=== PATIENT | female | born 1995 | race Caucasian/White ===

== ENCOUNTER 2017-08-08 01:52 | Inpatient (IN) | payer SELFPAY, BC, MEDICAID ==
[2017-08-08 04:13] LABS: HEMATOCRIT 30.9 % (36.0-47.0); HEMOGLOBIN 9.9 g/dl (12.0-15.5); MEAN CORPUSCULAR HEMOGLOBIN 26.4 pg (27.0-33.0); MEAN CORPUSCULAR VOLUME 82.4 fl (80.0-96.0); PLATELET COUNT, AUTOMATED 271 10^3/uL (150-450); RED BLOOD COUNT 3.75 10^6/uL (4.00-5.40); RED CELL DISTRIBUTION WIDTH 15.8 % (11.5-14.5); WHITE BLOOD COUNT 8.6 10^3/uL (4.0-10.0)
[2017-08-08] MEDS: LR 1,000 ML IV ×3 (04:28→19:06)
[2017-08-08] MEDS: PENICILLIN G POTASSIUM IV 5 MU in D5W MINI-BAG PLUS 100 ML IV (04:28)
[2017-08-08 04:35] LABS: ALT/SGPT 16 U/L (12-78); AST/SGOT 15 U/L (7-37); BILIRUBIN,TOTAL 0.2 MG/DL (0.2-1.0); CREATININE FOR GFR 0.56 MG/DL (0.55-1.30); GLOMERULAR FILTRATION RATE > 60.0 (>60); LDH LACTATE DEHYDROGENASE 182 U/L (84-246); URIC ACID 4.8 MG/DL (2.6-6.0)
[2017-08-08 04:39] LABS: AMPHETAMINES URINE REFLEX NEGATIVE (NEGATIVE); BARBITURATES URINE REFLEX NEGATIVE (NEGATIVE); BENZODIAZEPINES URINE REFLEX NEGATIVE (NEGATIVE); CANNABINOIDS URINE REFLEX NEGATIVE (NEGATIVE); COCAINE METABOLITE URINE REFLE NEGATIVE (NEGATIVE); CREATININE,RANDOM URINE 86.5 MG/DL; METHADONE URINE REFLEX NEGATIVE (NEGATIVE); OPIATES URINE REFLEX NEGATIVE (NEGATIVE); PHENCYCLIDINE URINE REFLEX NEGATIVE (NEGATIVE); TOTAL PROTEIN,RANDOM URINE 33.8 MG/DL (0.0-12.0)
[2017-08-08 04:59] LABS: HEPATITIS B SURFACE ANTIGEN NEGATIVE (NEGATIVE)
[2017-08-08] MEDS: OXYTOCIN DRIP 30 UNITS in APPROPRIATE DILUENT 1 EA IV (06:18)
[2017-08-08 06:39] LABS: CHLAMYDIA DNA AMPLIFICATION NEGATIVE (NEGATIVE); GC DNA AMPLIFICATION NEGATIVE (NEGATIVE)
[2017-08-08] MEDS ORDERED: FENTANYL 2MCG/ML ROPIVACAINE 0.2% IN 0.9% NACL 200ML IVBAG As Ordered (07:23)
[2017-08-08] MEDS: PENICILLIN G POTASSIUM IV 2.5 MU in APPROPRIATE DILUENT 1 EA IV ×4 (08:58→20:29)
[2017-08-08] MEDS ORDERED: diphenhydrAMINE INJ 50MG/ML VIAL (J1200) IV (09:15)
[2017-08-08] MEDS ORDERED: LACTATED RINGER'S 1000 ML IV (09:15)
[2017-08-08] MEDS ORDERED: NALOXONE INJ 0.4 MG/1 ML VIAL (J2310) IV (09:15)
[2017-08-08] MEDS ORDERED: EPIDURAL COMMENT XX (09:15)
[2017-08-08] MEDS ORDERED: FENTANYL/ROPIVACAINE/NACL BAG 200 ML EPIDURAL (09:15)
[2017-08-08] MEDS ORDERED: REFRIGERATOR IV KEYS XX (09:15)
[2017-08-08] MEDS ORDERED: ePHEDrine SULFATE 25 MG/5 ML(5MG/ML) SYRINGE IV (09:15)
[2017-08-08] MEDS ORDERED: EPIDURAL/PCA KEYS XX (09:15)
[2017-08-08] MEDS: ONDANSETRON 4MG/2ML VIAL (J2405) IV (21:51)
[2017-08-09] MEDS: PENICILLIN G POTASSIUM IV 2.5 MU in APPROPRIATE DILUENT 1 EA IV (00:27)
[2017-08-09] MEDS ORDERED: BICITRA 30ML SOLN UDC As Ordered (02:16)
[2017-08-09] MEDS ORDERED: ceFAZolin 1GM INJ (J0690 PER 500MG) As Ordered (02:16)
[2017-08-09] MEDS: ceFAZolin SOD 1 GM in D5W MINI-BAG PLUS 50 ML IV (02:30)
[2017-08-09] MEDS: BICITRA 30ML SOLN UDC PO (02:30)
[2017-08-09] MEDS ORDERED: miSOPROStol 200 MCG TAB (S0191) As Ordered (03:31)
[2017-08-09] MEDS ORDERED: fentaNYL 100 MCG/2 ML INJECTION (J3010) IV (03:45)
[2017-08-09] MEDS ORDERED: ONDANSETRON 4MG/2ML VIAL (J2405) IV ×3 (03:45→04:15)
[2017-08-09] MEDS: LR 1,000 ML IV ×3 (03:45→04:55)
[2017-08-09] MEDS ORDERED: KETOROLAC 30 MG/ML VIAL (J1885) IV (03:45)
[2017-08-09] MEDS ORDERED: MEPERIDINE INJ 25 MG/ML VIAL (J2175) IV (03:45)
[2017-08-09] MEDS ORDERED: METOCLOPRAMIDE INJ 10MG/2ML VIAL (J2765) IV (03:59)
[2017-08-09] MEDS ORDERED: NALOXONE INJ 0.4 MG/1 ML VIAL (J2310) IV ×2 (03:59)
[2017-08-09] MEDS ORDERED: NALBUPHINE HCL 10 MG/ML AMP (J2300) IV (03:59)
[2017-08-09] MEDS ORDERED: MEPERIDINE INJ 25 MG/ML VIAL (J2175) As Ordered ×2 (04:12→04:28)
[2017-08-09] MEDS ORDERED: RHOGAM 300 MCG (1500 IU) INJ (J2790) IM (04:15)
[2017-08-09] MEDS ORDERED: PERCOCET 5MG/325MG TAB PO (04:15)
[2017-08-09] MEDS ORDERED: DOCUSATE SODIUM 100 MG CAP PO (04:15)
[2017-08-09] MEDS ORDERED: MEASLES,MUMPS,RUBELLA VACCINE INJ (MMR-II) (90707) SC (04:15)
[2017-08-09] MEDS: miSOPROStol 200 MCG TAB (S0191) PR (04:15)
[2017-08-09] MEDS ORDERED: fentaNYL 100 MCG/2 ML INJECTION (J3010) As Ordered ×2 (04:18→04:32)
[2017-08-09] MEDS ORDERED: ONDANSETRON 4MG/2ML VIAL (J2405) As Ordered (04:26)
[2017-08-09] MEDS ORDERED: KETOROLAC 30 MG/ML VIAL (J1885) As Ordered (04:36)
[2017-08-09] MEDS ORDERED: PERCOCET 5MG/325MG TAB As Ordered (04:48)
[2017-08-09] MEDS: PERCOCET 5MG/325MG TAB PO (04:58)
[2017-08-09 10:20] LABS: HEPATITIS C VIRUS ABY INDEX < 0.0 INDEX (<0.8)
[2017-08-09 10:21] LABS: HIV 1&2 SCREEN CENTAUR NEGATIVE (NEGATIVE)
[2017-08-09] MEDS: KETOROLAC 30 MG/ML VIAL (J1885) IV ×2 (10:38→17:35)
[2017-08-09] MEDS: PRENATAL VITAMINS CHEWABLE TABLET PO (11:03)
[2017-08-09 11:13] LABS: RUBELLA IgG QUALITATIVE IMMUNE (IMMUNE)
[2017-08-10] MEDS: IBUPROFEN 800 MG TAB PO ×3 (02:10→18:03)
[2017-08-10 06:26] LABS: HEMATOCRIT 25.4 % (36.0-47.0); MEAN CORPUSCULAR HEMOGLOBIN 26.1 pg (27.0-33.0); MEAN CORPUSCULAR HGB CONC 31.5 g/dl (32.0-36.5); MEAN CORPUSCULAR VOLUME 82.7 fl (80.0-96.0); PLATELET COUNT, AUTOMATED 262 10^3/uL (150-450); RED BLOOD COUNT 3.07 10^6/uL (4.00-5.40); RED CELL DISTRIBUTION WIDTH 16.1 % (11.5-14.5)
[2017-08-10] MEDS: PRENATAL VITAMINS CHEWABLE TABLET PO (08:46)
[2017-08-10] MEDS: FUROSEMIDE 20 MG TAB PO ×2 (08:47→18:03)
[2017-08-10 08:49] LABS: HEMATOCRIT 22.7 % (36.0-47.0); HEMOGLOBIN 7.3 g/dl (12.0-15.5); MEAN CORPUSCULAR HEMOGLOBIN 26.5 pg (27.0-33.0); MEAN CORPUSCULAR HGB CONC 32.2 g/dl (32.0-36.5); MEAN CORPUSCULAR VOLUME 82.5 fl (80.0-96.0); PLATELET COUNT, AUTOMATED 222 10^3/uL (150-450); RED BLOOD COUNT 2.75 10^6/uL (4.00-5.40); RED CELL DISTRIBUTION WIDTH 16.3 % (11.5-14.5); WHITE BLOOD COUNT 11.4 10^3/uL (4.0-10.0)
[2017-08-10 09:56] LABS: ALBUMIN 1.9 GM/DL (3.2-5.2); ALBUMIN/GLOBULIN RATIO 0.61 (1.00-1.93); ALKALINE PHOSPHATASE 160 U/L (45-117); ALT/SGPT 13 U/L (12-78); ANION GAP 5 MEQ/L (8-16); AST/SGOT 26 U/L (7-37); BILIRUBIN,TOTAL 0.3 MG/DL (0.2-1.0); BLOOD UREA NITROGEN 14 MG/DL (7-18); CALCIUM LEVEL 7.5 MG/DL (8.5-10.1); CARBON DIOXIDE LEVEL 28 MEQ/L (21-32); CHLORIDE LEVEL 107 MEQ/L (98-107); CREATININE FOR GFR 0.85 MG/DL (0.55-1.30); GLUCOSE, FASTING 74 MG/DL (70-100); LDH LACTATE DEHYDROGENASE 269 U/L (84-246); POTASSIUM SERUM 4.1 MEQ/L (3.5-5.1); SODIUM LEVEL 140 MEQ/L (136-145); URIC ACID 6.6 MG/DL (2.6-6.0)
[2017-08-10 10:03] LABS: GLOMERULAR FILTRATION RATE > 60.0 (>60)
[2017-08-10] MEDS ORDERED: IBUPROFEN 800 MG TAB PO (12:45)
[2017-08-11] MEDS: IBUPROFEN 800 MG TAB PO ×2 (01:51→08:26)
[2017-08-11] MEDS: FUROSEMIDE 20 MG TAB PO (08:26)
[2017-08-11] MEDS: PRENATAL VITAMINS CHEWABLE TABLET PO (08:26)
== END 2017-08-11 16:25 | disposition home or self-care (01) | DRG 540 ==
LOC: M LDO 01:52 → M LDI 02:52 → M OBS 08-09 12:30
PROVIDERS: Advanced Practice Midwife
PROC: 10D00Z1 Extraction of Products of Conception, Low, Open Approach (ICD-10-PCS; principal; 2017-08-09 03:05)
DX: O48.0 Post-term pregnancy (principal); Z3A.41 41 weeks gestation of pregnancy; O62.0 Primary inadequate contractions; Z37.0 Single live birth

== ENCOUNTER → 2024-12-03 | Outpatient (CLI) | payer SELFPAY ==
[~2024-12-03] MED LIST: COLA100C5 PO; IBUP-1114 PO; OXYC1TAB23 PO; PRENTAB55 PO
== END ==
LOC: M SOG 07:17
PROVIDERS: ATTEND Orthopaedic Surgery
DX: M25.562 Pain in left knee (principal)